=== PATIENT | male | born 1970 | race Caucasian/White ===

== ENCOUNTER 2019-09-16 23:32 | Emergency (ER) | payer SELFPAY ==
[~2019-09-16] VITALS: Ht 175.3 cm; Wt 72.7 kg
[2019-09-16 23:52] VITALS: BP 136/85; TEMP 98.6
[2019-09-17] MEDS ORDERED: ATARAX 25MG25 MG/TAB PO (00:17)
[2019-09-17 00:28] VITALS: PULSE 73
== END 2019-09-17 00:30 | disposition home or self-care (01) ==
LOC: COL.ER 23:32
DX: F41.9 Anxiety disorder, unspecified (principal)

== ENCOUNTER 2020-04-10 17:59 | Emergency (ER) | payer SELFPAY ==
[~2020-04-10] VITALS: Ht 175.3 cm; Wt 72.7 kg
[~2020-04-10 17:59] MED LIST: ATARAX 25MG25 MG/TAB PO
[2020-04-10 18:00] VITALS: TEMP 98.6
[2020-04-10 18:28] LABS: COLLECTION METHOD CLEAN CATCH
[2020-04-10 18:41] LABS: PH 6 (5-8); SQUAMOUS EPITHELIAL None Seen /hpf; URINE APPEARANCE Clear; URINE BACTERIA None Seen /hpf; URINE BILIRUBIN Negative (NEGATIVE); URINE BLOOD Negative (NEGATIVE); URINE COLOR Straw; URINE GLUCOSE Negative (NEGATIVE); URINE KETONE Negative (NEGATIVE); URINE LEUKOCYTE ESTERASE Negative (NEGATIVE); URINE NITRATE Negative (NEGATIVE); URINE PROTEIN(semi-quant) Negative (NEGATIVE); URINE RBC None Seen /hpf; URINE UROBILINOGEN Negative (NEGATIVE)
[2020-04-10 18:42] LABS: BASO % 0.5 % (0.0-2.0); EOS % 0.3 % (0-4.0); HEMATOCRIT 44.1 % (42.0-52.0); HEMOGLOBIN 15.2 g/dl (13.5-18.0); LYMPH % 22.7 % (20.0-51.0); MEAN CELL VOLUME 98 fl (80.0-100.0); MEAN CORPUSCULAR HEMOGLOBIN 34 pg (27.0-31.0); MEAN CORPUSCULAR HGB CONC 35 g/dl (33.0-37.0); MEAN PLATELET VOLUME 9.8 fl (7.4-10.4); MONO # 0.5 (0.1-0.6); PLATELET COUNT 143 K/mm3 (130-400); RED BLOOD COUNT 4.52 M/mm3 (4.20-5.60); REDCELL DISTRIBUTION WIDTH-CV 13.9 % (11.5-14.5)
[2020-04-10 18:48] LABS: INR 0.9 (0.8-3.0); PROTHROMBIN TIME 9.9 SECONDS (9.7-12.8)
[2020-04-10 18:50] LABS: PARTIAL THROMBOPLASTIN TIME 34.6 SECONDS (26.0-37.0)
[2020-04-10 19:01] LABS: ALANINE AMINOTRANSFERASE 23 U/L (4-49); ALBUMIN 3.9 gm/dL (3.5-5.0); ALCOHOL(ethanol),MEDICAL 290 mg/dL; ALKALINE PHOSPHATASE 51 U/L (50-136); ANION GAP 9 mmol/L (7-16); AST,SGOT 49 U/L (15-37); BILIRUBIN,TOTAL 0.5 mg/dL (0.0-1.0); BLOOD UREA NITROGEN 5 mg/dL (9-20); CALCIUM 8.3 mg/dL (8.4-10.2); CARBON DIOXIDE 24 mmol/L (22-30); CHLORIDE 106 mmol/L (98-107); GLUCOSE 89 mg/dL (74-106); MAGNESIUM 1.9 mg/dL (1.6-2.3); SODIUM 139 mmol/L (137-145); TOTAL PROTEIN 6.2 gm/dL (6.4-8.2)
[2020-04-10 19:24] LABS: TROPONIN-I < 0.012 ng/mL (0.000-0.035)
[2020-04-10 22:55] VITALS: BP 117/74; PULSE 91
== END 2020-04-10 22:55 | disposition home or self-care (01) ==
LOC: COL.ER 17:59
PROVIDERS: Emergency Medicine
DX: F41.9 Anxiety disorder, unspecified (principal); F10.229 Alcohol dependence with intoxication, unspecified; F17.200 Nicotine dependence, unspecified, uncomplicated; Z88.0 Allergy status to penicillin
CPT/HCPCS: J2060; J3411; J3475; J7030

== ENCOUNTER 2020-06-01 19:19 | Emergency (ER) | payer SELFPAY ==
[~2020-06-01] VITALS: Ht 175.3 cm; Wt 72.7 kg
[2020-06-01 19:52] LABS: BASO % 0.4 % (0.0-2.0); EOS # 0.1 (0.0-0.7); GRAN # 5.1 (1.4-6.5); GRAN % 67.2 % (42.2-75.2); HEMATOCRIT 42.5 % (42.0-52.0); HEMOGLOBIN 14.4 g/dl (13.5-18.0); LYMPH # 1.8 (1.2-3.4); LYMPH % 22.9 % (20.0-51.0); MEAN CELL VOLUME 99 fl (80.0-100.0); MEAN CORPUSCULAR HEMOGLOBIN 34 pg (27.0-31.0); MEAN CORPUSCULAR HGB CONC 34 g/dl (33.0-37.0); MEAN PLATELET VOLUME 10.1 fl (7.4-10.4); MONO # 0.6 (0.1-0.6); MONO % 8.1 % (1.7-9.3); PLATELET COUNT 139 K/mm3 (130-400); RED BLOOD COUNT 4.28 M/mm3 (4.20-5.60)
[2020-06-01 20:02] LABS: ALBUMIN 3.5 gm/dL (3.5-5.0); BILIRUBIN,TOTAL 0.4 mg/dL (0.0-1.0); CALCIUM 8.3 mg/dL (8.4-10.2); CREATININE, serum 0.81 (0.66-1.25); MAGNESIUM 2.1 mg/dL (1.6-2.3); POTASSIUM 4.1 mmol/L (3.4-5.0); TOTAL PROTEIN 5.8 gm/dL (6.4-8.2)
[2020-06-01 22:25] VITALS: BP 126/71; PULSE 89; TEMP 97.6
== END 2020-06-01 22:29 | disposition home or self-care (01) ==
LOC: COL.ER 19:19
PROVIDERS: Nurse Practitioner
DX: M25.572 Pain in left ankle and joints of left foot (principal); M25.571 Pain in right ankle and joints of right foot; F10.129 Alcohol abuse with intoxication, unspecified; Z88.0 Allergy status to penicillin
CPT/HCPCS: J3411; J3475; J7030

== ENCOUNTER 2020-10-24 17:13 | Observation (INO) | payer OTHER ==
[~2020-10-24] VITALS: Ht 175.3 cm; Wt 77.7 kg
[2020-10-24 18:12] LABS: BASO % 0.5 % (0.0-2.0); EOS # 0.1 (0.0-0.7); EOS % 0.9 % (0-4.0); GRAN % 62.5 % (42.2-75.2); HEMATOCRIT 43.4 % (42.0-52.0); HEMOGLOBIN 14.6 g/dl (13.5-18.0); LYMPH # 1.9 (1.2-3.4); MEAN CELL VOLUME 101 fl (80.0-100.0); MEAN CORPUSCULAR HEMOGLOBIN 34 pg (27.0-31.0); MEAN CORPUSCULAR HGB CONC 34 g/dl (33.0-37.0); MEAN PLATELET VOLUME 9.6 fl (7.4-10.4); MONO # 0.4 (0.1-0.6); MONO % 6.8 % (1.7-9.3); PLATELET COUNT 169 K/mm3 (130-400); RED BLOOD COUNT 4.32 M/mm3 (4.20-5.60); REDCELL DISTRIBUTION WIDTH-CV 13.5 % (11.5-14.5)
[2020-10-24 19:07] LABS: ALBUMIN 4.1 gm/dL (3.5-5.0); BILIRUBIN,TOTAL 0.1 mg/dL (0.0-1.0); CALCIUM 8.5 mg/dL (8.4-10.2); CREATININE, serum 0.77 (0.66-1.25); POTASSIUM 3.8 mmol/L (3.4-5.0); TOTAL PROTEIN 6.9 gm/dL (6.4-8.2)
[2020-10-25 02:03] LABS: ARTERIAL BLD GAS O2 SATURATION 92.9 % (92-100); ARTERIAL BLD GAS TCO2 CT 27.2; ARTERIAL BLOOD GAS BASE EXCESS 2.7 (-2-2); ARTERIAL BLOOD GAS HCO3 26.1 meq/L (22-26); ARTERIAL BLOOD GAS PCO2 36.2 mmHg (35-45); ARTERIAL BLOOD GAS pH 7.48 (7.35-7.45)
[2020-10-25 04:13] VITALS: BP 144/83; PULSE 83; TEMP 98.5
--- NOTE | 2020-10-25 05:09 | NUR ---
Patient arrived from ER to medical unit around 0320. Alert and oriented x 4, and able to make needs known. Denies having pain and discomfort at this time. Fluids running per orders. On oxygen at 6 L/min via oxymask. Patient taken down for CT chest to check for PE. RT notified when patient was back to get EKG. On telemetry. On detox protocol. Scored "0." LS CTA. Respirations even and unlabored. Voices no questions, needs, or concerns at this time. Resting in bed with call light within reach.
[2020-10-25 06:13] LABS: BASO % 0.2 % (0.0-2.0); GRAN # 4.4 (1.4-6.5); GRAN % 94.2 % (42.2-75.2); HEMATOCRIT 38.5 % (42.0-52.0); HEMOGLOBIN 12.7 g/dl (13.5-18.0); LYMPH # 0.2 (1.2-3.4); LYMPH % 4.3 % (20.0-51.0); MEAN CELL VOLUME 104 fl (80.0-100.0); MEAN CORPUSCULAR HEMOGLOBIN 34 pg (27.0-31.0); MEAN CORPUSCULAR HGB CONC 33 g/dl (33.0-37.0); MEAN PLATELET VOLUME 10.2 fl (7.4-10.4); MONO % 0.9 % (1.7-9.3); PLATELET COUNT 116 K/mm3 (130-400); RED BLOOD COUNT 3.71 M/mm3 (4.20-5.60); REDCELL DISTRIBUTION WIDTH-CV 13.5 % (11.5-14.5)
[2020-10-25 06:20] LABS: CALCIUM 7.8 mg/dL (8.4-10.2); CREATININE, serum 0.64 (0.66-1.25); POTASSIUM 3.5 mmol/L (3.4-5.0)
[2020-10-25 06:21] LABS: PROTHROMBIN TIME 11.1 SECONDS (9.7-12.8)
[2020-10-25 06:24] LABS: PARTIAL THROMBOPLASTIN TIME 34.1 SECONDS (26.0-37.0)
[2020-10-25 07:51] VITALS: BP 143/81; PULSE 77; TEMP 97.8
--- NOTE | 2020-10-25 08:30 | NUR ---
Patient resting in bed, easily awakened with verbal command. A&Ox4. VSS 5L oxymask, no reported SOB. Tremors in EMMANUEL extremity. Detox protocol in place. Patient encouraged to increase PO intake. No further needs expressed from the patient. Call light within reach. Bed alarm on
[2020-10-25 08:37] LABS: COLLECTION METHOD CLEAN CATCH
[2020-10-25 08:48] LABS: MUCOUS Present /lpf; PH 6 (5-8); SQUAMOUS EPITHELIAL None Seen /hpf; URINE APPEARANCE Clear; URINE BACTERIA None Seen /hpf; URINE BILIRUBIN Negative (NEGATIVE); URINE BLOOD Negative (NEGATIVE); URINE COLOR Yellow; URINE GLUCOSE 1+ (NEGATIVE); URINE KETONE Negative (NEGATIVE); URINE LEUKOCYTE ESTERASE Negative (NEGATIVE); URINE NITRATE Negative (NEGATIVE); URINE PROTEIN(semi-quant) Negative (NEGATIVE); URINE RBC 0-2 /hpf; URINE UROBILINOGEN Negative (NEGATIVE); URINE WBC 0-2 /hpf
[2020-10-25 08:56] LABS: TRICYCLIC ANTIDEPRESS URINE NEGATIVE
[2020-10-25 09:49] VITALS: BP 140/78; PULSE 75; TEMP 98.4
[2020-10-25] MEDS ORDERED: MEDROL 4MG DOSPA4 MG PO (10:51)
[2020-10-25] MEDS ORDERED: PROAIR HFA0.09 MG/AC IH (10:51)
[2020-10-25] MEDS ORDERED: DOXYCYCLINE 10100 MG PO (10:51)
--- NOTE | 2020-10-25 11:19 | NUR ---
Patient on room air and no complaints of SOB. Patient aware that if O2 sats are good that he can discharge home
--- NOTE | 2020-10-25 11:39 | NUR ---
SW met with patient to conduct intake evaluation. Patient is homeless and currently staying with a friend Osman Hoff in [place]. Patient is not interested in contacting homeless shelters, as he has a place to stay. Patient reported that his daughter Saskia Soto (P# [phone]) is his DPOA. Patient will contact daughter to hae her bring copy of paperwork in for hospital records. Patient does not have a PCP, but he uses [facility] for medications. Patient denies needing assistance with ADLs and uses no DME. Patient reports needing assistance with medications. SW obtained medication voucher for patient. Voucher was completed with Erin, signed by patient, and faxed to [facility]. Patient was given voucher, and a copy was placed on the chart. Patient plans to return to his friend's house upon discharge. Patient will discharge home today 10/25. Patient was provided with taxi voucher and use intructions along with his med voucher. RN was notified of completed voucher as well as taxi voucher. There are no other needs at this time.
--- NOTE | 2020-10-25 11:57 | NUR ---
Rail Filler offered prayer and support with patient.
--- NOTE | 2020-10-25 12:45 | NUR ---
Discharge paperwork reviewed with the patient. Patient verbalzied an understanding to follow doctors orders. IV removed, tip intact. Patient ambulated independently to the ER entrance with nursing staff. No further needs expressed from the patient
== END 2020-10-25 12:30 | disposition home or self-care (01) ==
LOC: COL.ER 17:13 → MEDICAL 10-25 00:37
PROVIDERS: Emergency Medicine; Nurse Practitioner Family; ADMIT Internal Medicine
DX: F10.129 Alcohol abuse with intoxication, unspecified (principal); Y90.8 Blood alcohol level of 240 mg/100 ml or more; J96.01 Acute respiratory failure with hypoxia; I10 Essential (primary) hypertension; K08.9 Disorder of teeth and supporting structures, unspecified; E87.1 Hypo-osmolality and hyponatremia; F17.210 Nicotine dependence, cigarettes, uncomplicated; J34.2 Deviated nasal septum; F41.9 Anxiety disorder, unspecified; Z20.822 Contact with and (suspected) exposure to COVID-19; Z72.89 Other problems related to lifestyle; Z91.14 Patient's other noncompliance with medication regimen; Z59.0 Homelessness; Z80.1 Family history of malignant neoplasm of trachea, bronchus and lung; S05.11XA Contusion of eyeball and orbital tissues, right eye, initial encounter; X58.XXXA Exposure to other specified factors, initial encounter
CPT/HCPCS: 99223-AI; G0378; J2543; J2920; J2930; J3411; J7030; Q9967

== ENCOUNTER 2021-01-08 19:25 | Emergency (ER) | payer SELFPAY ==
[~2021-01-08] VITALS: Ht 175.3 cm; Wt 72.7 kg
[~2021-01-08 19:25] MED LIST changes: +DOXYCYCLINE 10100 MG PO; +MEDROL 4MG DOSPA4 MG PO; +PROAIR HFA0.09 MG/AC IH
[2021-01-08 19:27] VITALS: TEMP 97.6
[2021-01-08 20:16] LABS: BASO % 0.7 % (0.0-2.0); EOS # 0.1 (0.0-0.7); EOS % 1.8 % (0-4.0); GRAN # 3.5 (1.4-6.5); GRAN % 62.3 % (42.2-75.2); HEMATOCRIT 39.3 % (42.0-52.0); HEMOGLOBIN 13.2 g/dl (13.5-18.0); LYMPH # 1.3 (1.2-3.4); LYMPH % 22.8 % (20.0-51.0); MEAN CELL VOLUME 101 fl (80.0-100.0); MEAN CORPUSCULAR HEMOGLOBIN 34 pg (27.0-31.0); MEAN CORPUSCULAR HGB CONC 34 g/dl (33.0-37.0); MEAN PLATELET VOLUME 9.6 fl (7.4-10.4); MONO # 0.7 (0.1-0.6); PLATELET COUNT 117 K/mm3 (130-400); RED BLOOD COUNT 3.91 M/mm3 (4.20-5.60)
[2021-01-08 20:26] LABS: BILIRUBIN,TOTAL 0.6 mg/dL (0.0-1.0); CALCIUM 8.3 mg/dL (8.4-10.2); CREATININE, serum 0.76 (0.66-1.25); POTASSIUM 3.5 mmol/L (3.4-5.0); TOTAL PROTEIN 6.9 gm/dL (6.4-8.2)
[2021-01-08] MEDS ORDERED: CIPRO 500MG TA500 MG PO (22:09)
[2021-01-08 22:51] VITALS: BP 137/83; PULSE 89
--- NOTE | 2021-01-09 14:56 | NUR ---
Monomer Purification Operator attempted to contact patient at [phone] and was unable to get through. SW attempted to contact patient's daughter, Konstantin at two different phone numbers, and [phone] and left a message at both numbers. SW received consult for patient as he is homeless and his daughter in concerned about patient's ability to afford medications and follow through on taking prescribed medications.
--- NOTE | 2021-01-09 15:15 | NUR ---
Group Fitness Instructor made report to APS (intake #[id number])
== END 2021-01-08 23:00 | disposition home or self-care (01) ==
LOC: COL.ER 19:25
PROVIDERS: Personal Emergency Response Attendant
DX: S51.851A Open bite of right forearm, initial encounter (principal); S41.151A Open bite of right upper arm, initial encounter; I10 Essential (primary) hypertension; F10.10 Alcohol abuse, uncomplicated; W54.0XXA Bitten by dog, initial encounter
CPT/HCPCS: J0696

== ENCOUNTER 2021-01-14 18:04 | Emergency (ER) | payer SELFPAY ==
[~2021-01-14] VITALS: Ht 175.3 cm; Wt 72.7 kg
[~2021-01-14 18:04] MED LIST changes: +CIPRO 500MG TA500 MG PO
[2021-01-14 18:06] VITALS: TEMP 98.3
[2021-01-14 18:46] LABS: BASO # 0.1 (0.0-0.2); BASO % 1.3 % (0.0-2.0); EOS # 0.1 (0.0-0.7); EOS % 0.9 % (0-4.0); GRAN # 3.5 (1.4-6.5); GRAN % 65.3 % (42.2-75.2); HEMATOCRIT 38.7 % (42.0-52.0); HEMOGLOBIN 13.4 g/dl (13.5-18.0); LYMPH # 1.1 (1.2-3.4); LYMPH % 20.3 % (20.0-51.0); MEAN CELL VOLUME 98 fl (80.0-100.0); MEAN CORPUSCULAR HEMOGLOBIN 34 pg (27.0-31.0); MEAN CORPUSCULAR HGB CONC 35 g/dl (33.0-37.0); MEAN PLATELET VOLUME 9.2 fl (7.4-10.4); MONO # 0.6 (0.1-0.6); MONO % 11.6 % (1.7-9.3); PLATELET COUNT 192 K/mm3 (130-400); RED BLOOD COUNT 3.96 M/mm3 (4.20-5.60); REDCELL DISTRIBUTION WIDTH-CV 12.4 % (11.5-14.5)
[2021-01-14 19:01] LABS: ALBUMIN 4.1 gm/dL (3.5-5.0); BILIRUBIN,TOTAL 0.4 mg/dL (0.0-1.0); CALCIUM 9.1 mg/dL (8.4-10.2); CREATININE, serum 0.59 (0.66-1.25); POTASSIUM 3.9 mmol/L (3.4-5.0); TOTAL PROTEIN 7.3 gm/dL (6.4-8.2)
[2021-01-14 20:11] VITALS: BP 141/78; PULSE 78
== END 2021-01-14 20:11 | disposition home or self-care (01) ==
LOC: COL.ER 18:04
PROVIDERS: Physician Assistant
DX: S61.551A Open bite of right wrist, initial encounter (principal); F10.129 Alcohol abuse with intoxication, unspecified; F17.210 Nicotine dependence, cigarettes, uncomplicated; W54.0XXA Bitten by dog, initial encounter

== ENCOUNTER 2021-01-21 16:37 | Emergency (ER) | payer SELFPAY ==
[~2021-01-21] VITALS: Ht 175.3 cm; Wt 72.7 kg
[2021-01-21 17:19] VITALS: TEMP 98.8
[2021-01-21] MEDS ORDERED: CLEOCIN HCL300 MG PO (19:15)
[2021-01-21 20:00] VITALS: BP 137/82; PULSE 72
== END 2021-01-21 20:00 | disposition home or self-care (01) ==
LOC: COL.ER 16:37 → EDSTATUS 17:02 → COL.ER 20:00
DX: L03.113 Cellulitis of right upper limb (principal); L03.313 Cellulitis of chest wall; F17.210 Nicotine dependence, cigarettes, uncomplicated; Z48.02 Encounter for removal of sutures; Z88.0 Allergy status to penicillin; W54.0XXD Bitten by dog, subsequent encounter

== ENCOUNTER 2021-08-22 09:29 | Emergency (ER) | payer SELFPAY ==
[~2021-08-22] VITALS: Ht 175.3 cm; Wt 72.7 kg
[2021-08-22 09:29] VITALS: TEMP 98.4
[~2021-08-22 09:29] MED LIST changes: +CLEOCIN HCL300 MG PO
[2021-08-22 09:57] LABS: BASO # 0.1 K/mm3 (0.0-0.2); BASO % 0.5 % (0.0-2.0); EOS # 0.1 K/mm3 (0.0-0.7); EOS % 0.5 % (0.0-4.0); GRAN # 7.9 K/mm3 (1.4-6.5); GRAN % 78.8 % (42.2-75.2); HEMATOCRIT 45.5 % (42.0-52.0); HEMOGLOBIN 15.6 g/dl (13.5-18.0); LYMPH # 1.5 K/mm3 (1.2-3.4); LYMPH % 15.1 % (20.0-51.0); MEAN CELL VOLUME 98 fl (80.0-100.0); MEAN CORPUSCULAR HEMOGLOBIN 34 pg (27-31); MEAN CORPUSCULAR HGB CONC 34 g/dl (33.0-37.0); MEAN PLATELET VOLUME 9.9 fl (7.4-10.4); MONO # 0.5 K/mm3 (0.1-0.6); MONO % 4.7 % (1.7-9.3); PLATELET COUNT 198 K/mm3 (130-400); RED BLOOD COUNT 4.65 M/mm3 (4.20-5.60); REDCELL DISTRIBUTION WIDTH-CV 12.8 % (11.5-14.5)
[2021-08-22 10:13] LABS: ALBUMIN 4.1 gm/dL (3.5-5.0); BILIRUBIN,TOTAL 0.7 mg/dL (0.2-1.2); CALCIUM 8.9 mg/dL (8.4-10.2); CREATININE, serum 1.08 mg/dL (0.72-1.25); POTASSIUM 4.2 mmol/L (3.5-4.5); TOTAL PROTEIN 7.6 gm/dL (6.2-8.1)
[2021-08-22 10:18] LABS: ERYTHROCYTE SEDIMENTATION RATE 4 mm/hr (0-15)
[2021-08-22 10:30] LABS: COLLECTION METHOD CLEAN CATCH
[2021-08-22 11:01] LABS: MUCOUS Present (NOT PRESENT); PH 5 (5-8); SQUAMOUS EPITHELIAL None Seen /hpf (0-10); URINE APPEARANCE Clear (CLEAR/HAZY); URINE BACTERIA None Seen /hpf (NONE SEEN); URINE BILIRUBIN Negative (NEGATIVE); URINE BLOOD Negative (NEGATIVE); URINE COLOR Yellow (YELLOW); URINE GLUCOSE Negative (NEGATIVE); URINE KETONE Negative (NEGATIVE); URINE LEUKOCYTE ESTERASE Negative (NEGATIVE); URINE NITRATE Negative (NEGATIVE); URINE PROTEIN(semi-quant) Negative (NEGATIVE); URINE RBC 0-2 /hpf (0-2); URINE UROBILINOGEN Negative (NEGATIVE)
[2021-08-22] MEDS ORDERED: PREDNISONE10 MG PO (12:47)
[2021-08-22 13:00] VITALS: BP 139/93; PULSE 83
== END 2021-08-22 13:00 | disposition home or self-care (01) ==
LOC: COL.ER 09:29
PROVIDERS: Family Medicine
DX: R22.0 Localized swelling, mass and lump, head (principal); T46.4X5A Adverse effect of angiotensin-converting-enzyme inhibitors, initial encounter; I10 Essential (primary) hypertension; F17.200 Nicotine dependence, unspecified, uncomplicated
CPT/HCPCS: J0171; J1100; J1200

== ENCOUNTER 2022-04-05 06:43 | Observation (INO) | payer BC ==
[~2022-04-05] VITALS: Ht 175.3 cm; Wt 71.8 kg
[~2022-04-05 06:43] MED LIST changes: +PREDNISONE10 MG PO
[2022-04-05 07:37] LABS: BASO % 0.5 % (0.0-2.0); EOS # 0.1 K/mm3 (0.0-0.7); EOS % 1.4 % (0.0-4.0); GRAN # 3.7 K/mm3 (1.4-6.5); GRAN % 64.4 % (42.2-75.2); HEMATOCRIT 39.2 % (42.0-52.0); HEMOGLOBIN 13.8 g/dl (13.5-18.0); LYMPH # 1.3 K/mm3 (1.2-3.4); LYMPH % 22.5 % (20.0-51.0); MEAN CELL VOLUME 96 fl (80.0-100.0); MEAN CORPUSCULAR HEMOGLOBIN 34 pg (27-31); MEAN CORPUSCULAR HGB CONC 35 g/dl (33.0-37.0); MEAN PLATELET VOLUME 9.8 fl (7.4-10.4); MONO # 0.6 K/mm3 (0.1-0.6); MONO % 10.7 % (1.7-9.3); PLATELET COUNT 112 K/mm3 (130-400); RED BLOOD COUNT 4.08 M/mm3 (4.20-5.60); REDCELL DISTRIBUTION WIDTH-CV 14.4 % (11.5-14.5)
[2022-04-05 07:57] LABS: ALBUMIN 3.8 gm/dL (3.5-5.0); BILIRUBIN,TOTAL 0.4 mg/dL (0.2-1.2); CALCIUM 8.4 mg/dL (8.4-10.2); CREATININE, serum 0.73 mg/dL (0.72-1.25); POTASSIUM 3.7 mmol/L (3.5-4.5); TOTAL PROTEIN 6.6 gm/dL (6.2-8.1)
[2022-04-05] MEDS ORDERED: PROZAC 20MG20 MG PO (13:15)
[2022-04-05] MEDS ORDERED: NORVASC2.5 MG PO (13:16)
--- NOTE | 2022-04-05 13:45 | NUR ---
arrived on unit per cart, assisted off cart and ambulated over to the bed, then assisted into the bathroom and voided large amount clear yellow urine, O2 on at 4L/NC,
[2022-04-05 13:55] VITALS: BP 144/97; PULSE 68; TEMP 98.1
--- NOTE | 2022-04-05 14:09 | NUR ---
o2 SAT 97% ON 4l, down to 3L and will montir
--- NOTE | 2022-04-05 14:30 | NUR ---
Dr Louise in to see patient, instructed on how to order something to eat, verbalizes understanding
--- NOTE | 2022-04-05 15:37 | NUR ---
appears to be sleeping, in bed with e yes closed, resp quiet and easy
[2022-04-05 16:04] VITALS: BP 150/88; PULSE 66; TEMP 97.7
--- NOTE | 2022-04-05 16:58 | NUR ---
awake and looking at phone, UA to lab, O2 down to 2L/NC and will monitor
--- NOTE | 2022-04-05 18:00 | NUR ---
resting in bed, supper ordered, UNRULY Morales notified of BP increasing
[2022-04-05 18:05] VITALS: BP 161/91; PULSE 65; TEMP 98.2
--- NOTE | 2022-04-05 18:07 | NUR ---
O2 sat is 93% on 2L, having a few mild tremors now
--- NOTE | 2022-04-05 18:39 | NUR ---
bedside shift report given to EFRAÍN Burnham
[2022-04-05 19:43] VITALS: BP 161/78; PULSE 72; TEMP 98.6
[2022-04-05 21:45] VITALS: BP 166/86; PULSE 66
[2022-04-05 22:04] LABS: COLLECTION METHOD CLEAN CATCH
[2022-04-05 22:13] LABS: MUCOUS Present (NOT PRESENT); SQUAMOUS EPITHELIAL None Seen /hpf (0-10); URINE BACTERIA None Seen /hpf (NONE SEEN); URINE RBC 0-2 /hpf (0-2); URINE WBC 0-2 /hpf (0-2)
[2022-04-05 22:14] LABS: PH 5.5 (5.0-8.5); URINE APPEARANCE Clear (CLEAR/HAZY); URINE BLOOD Negative (NEGATIVE); URINE COLOR Yellow (YELLOW); URINE GLUCOSE TRACE (NEGATIVE); URINE KETONE Negative (NEGATIVE); URINE NITRATE Negative (NEGATIVE); URINE PROTEIN(semi-quant) Negative (NEGATIVE); URINE UROBILINOGEN 0.2 E.U/dL (0.2-1.0)
[2022-04-05 22:19] LABS: TRICYCLIC ANTIDEPRESS URINE NEGATIVE
[2022-04-05 23:50] VITALS: BP 170/81; PULSE 66; TEMP 98.5
[2022-04-06 04:09] VITALS: BP 168/97; PULSE 61; TEMP 98.2
[2022-04-06 05:51] VITALS: BP 171/93; PULSE 58
[2022-04-06 07:05] LABS: BASO % 0.2 % (0.0-2.0); EOS % 0.2 % (0.0-4.0); GRAN # 6.1 K/mm3 (1.4-6.5); GRAN % 76.4 % (42.2-75.2); HEMATOCRIT 37.3 % (42.0-52.0); HEMOGLOBIN 13.1 g/dl (13.5-18.0); LYMPH # 1.1 K/mm3 (1.2-3.4); LYMPH % 13.1 % (20.0-51.0); MEAN CELL VOLUME 95 fl (80.0-100.0); MEAN CORPUSCULAR HEMOGLOBIN 34 pg (27-31); MEAN CORPUSCULAR HGB CONC 35 g/dl (33.0-37.0); MEAN PLATELET VOLUME 10.3 fl (7.4-10.4); MONO # 0.8 K/mm3 (0.1-0.6); MONO % 9.9 % (1.7-9.3); PLATELET COUNT 104 K/mm3 (130-400); RED BLOOD COUNT 3.91 M/mm3 (4.20-5.60); REDCELL DISTRIBUTION WIDTH-CV 14.1 % (11.5-14.5)
[2022-04-06 07:17] VITALS: BP 180/91; PULSE 65; TEMP 98
[2022-04-06 07:20] LABS: CREATININE, serum 0.65 mg/dL (0.72-1.25); POTASSIUM 3.7 mmol/L (3.5-4.5)
--- NOTE | 2022-04-06 08:00 | NUR ---
Report from PCT of elevated BP. Rechecked at this time manually and current BP 182/98. Hydralazine given per order. Will monitor.
[2022-04-06] MEDS ORDERED: FOLIC ACID 11 MG/TA1 PO (09:53)
[2022-04-06] MEDS ORDERED: PROZAC 20MG20 MG PO (09:53)
[2022-04-06] MEDS ORDERED: NICODERM C21 MG/PATC TD (09:53)
[2022-04-06] MEDS ORDERED: NORVASC2.5 MG PO (09:53)
[2022-04-06] MEDS ORDERED: THIAMINE 1100 MG/TAB PO (09:54)
[2022-04-06] MEDS ORDERED: MULTI VITAMINS1 TAB PO (09:54)
[2022-04-06] MEDS ORDERED: ATARAX 25MG25 MG/TAB PO ×2 (09:56→09:57)
[2022-04-06 10:04] VITALS: BP 162/85; PULSE 73
[2022-04-06 11:16] VITALS: BP 161/80; PULSE 71; TEMP 98.2
--- NOTE | 2022-04-06 12:32 | NUR ---
PATIENT RECIEVED DISCHARGE INFORMATION AND ACKNOWLEDGED UNDERSTANDING OF INFORMATION. DEPARTED WITH THE GUM DIPPER VIA WHEELCHAIR AT 1230
--- NOTE | 2022-04-06 12:37 | NUR ---
Ambreen: Yazdanism Situation: planograph operator stopped by room on rounds Background: Pt was content and resting Assessment: No needs right now Pt appreciated the visit Recommendation: planograph operator will follow up as needed
--- NOTE | 2022-04-06 12:38 | NUR ---
Graphic Artist met with patient to discuss discharge planning. Patient lives alone in [place] and sees Dr. Grigsby for primary care at [facility]. Patient obtains medications at [facility] with no difficulties. 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 Patient does not use any DME. Patient does not have Advance Directives, but reports he has three children: Konstantin (ph#[phone]), Bruna, and Raza. Patient is not . SW addressed patient's alcohol use and provided Mental Health and Drug/Alcohol Resource Guide. Patient is not interested in any inpatient or outpatient treatment at this time but advised he was recently at [facility] in [place] in August. Patient reported he goes to a couple times a week. Patient plans to return home at time of discharge and will utilize the [employer] bus as he can ride for free with his work ID. Discharge Plan: Home
== END 2022-04-06 12:30 | disposition home or self-care (01) ==
LOC: COL.ER 06:43 → MEDICAL 08:53
PROVIDERS: Personal Emergency Response Attendant; ADMIT Student in an Organized Health Care Education/Training Program
DX: R09.02 Hypoxemia (principal); F10.129 Alcohol abuse with intoxication, unspecified; S13.4XXA Sprain of ligaments of cervical spine, initial encounter; I10 Essential (primary) hypertension; F41.9 Anxiety disorder, unspecified; F17.210 Nicotine dependence, cigarettes, uncomplicated; Z79.899 Other long term (current) drug therapy; W19.XXXA Unspecified fall, initial encounter; Y90.8 Blood alcohol level of 240 mg/100 ml or more
CPT/HCPCS: G0378; J0360; J2060; J2405; J2930; J7030

== ENCOUNTER 2023-06-27 11:05 | Emergency (ER) | payer OTHER ==
[~2023-06-27] VITALS: Ht 177.8 cm; Wt 79.5 kg
[~2023-06-27 11:05] MED LIST changes: +ADVIL200 MG PO; +FOLIC ACID 11 MG/TA1 PO; +MULTI VITAMINS1 TAB PO; +NICODERM C21 MG/PATC TD; +NORVASC 10MG10 MG PO; +NORVASC2.5 MG PO; +OMNICEF 300MG300 MG PO; +PREDNISONE20 MG PO; +PROZAC 20MG20 MG PO; +THIAMINE 1100 MG/TAB PO; +ZESTRIL2.5 MG PO; +ZITHROMAX Z PA250 MG PO
[2023-06-27 11:17] LABS: BASO # 0.1 K/mm3 (0.0-0.2); BASO % 0.5 % (0.0-2.0); EOS # 0.2 K/mm3 (0.0-0.7); EOS % 1.5 % (0.0-4.0); GRAN # 7.2 K/mm3 (1.4-6.5); HEMATOCRIT 44.9 % (42.0-52.0); HEMOGLOBIN 15.4 g/dl (13.5-18.0); LYMPH # 2.1 K/mm3 (1.2-3.4); LYMPH % 20.5 % (20.0-51.0); MEAN CELL VOLUME 99 fl (80.0-100.0); MEAN CORPUSCULAR HEMOGLOBIN 34 pg (27-31); MEAN CORPUSCULAR HGB CONC 34 g/dl (33.0-37.0); MEAN PLATELET VOLUME 10.2 fl (7.4-10.4); MONO # 0.6 K/mm3 (0.1-0.6); PLATELET COUNT 179 K/mm3 (130-400); RED BLOOD COUNT 4.53 M/mm3 (4.20-5.60); REDCELL DISTRIBUTION WIDTH-CV 13.2 % (11.5-14.5)
[2023-06-27 12:38] LABS: ALBUMIN 3.4 gm/dL (3.5-5.0); BILIRUBIN,TOTAL 0.3 mg/dL (0.2-1.2); CREATININE, serum 0.7 mg/dL (0.72-1.25); POTASSIUM 3.5 mmol/L (3.5-4.5); TOTAL PROTEIN 6.2 gm/dL (6.2-8.1)
[2023-06-27 16:57] LABS: COLLECTION METHOD CLEAN CATCH
[2023-06-27 17:24] LABS: PH 5.5 (5.0-8.5); URINE APPEARANCE Clear (CLEAR/HAZY); URINE BLOOD Negative (NEGATIVE); URINE COLOR Yellow (YELLOW); URINE GLUCOSE Negative (NEGATIVE); URINE KETONE Negative (NEGATIVE); URINE NITRATE Negative (NEGATIVE); URINE PROTEIN(semi-quant) Negative (NEGATIVE); URINE UROBILINOGEN 0.2 E.U/dL (0.2-1.0)
[2023-06-27 17:25] LABS: MUCOUS Present (NOT PRESENT); URINE RBC None Seen /hpf (0-2)
[2023-06-27 18:00] VITALS: BP 125/74; PULSE 72
== END 2023-06-27 18:00 | disposition home or self-care (01) ==
LOC: COL.ER 11:05
PROVIDERS: Emergency Medicine
DX: F10.129 Alcohol abuse with intoxication, unspecified (principal); Y90.8 Blood alcohol level of 240 mg/100 ml or more
CPT/HCPCS: J2405; J7030

== ENCOUNTER 2023-07-26 12:48 | Emergency (ER) | payer OTHER ==
[~2023-07-26] VITALS: Ht 172.7 cm; Wt 75.0 kg
[2023-07-26 12:48] VITALS: TEMP 98.2
[2023-07-26] MEDS ORDERED: NS 1,000 ML IV ONE (13:00)
[2023-07-26 13:05] LABS: BASO % 0.6 % (0.0-2.0); EOS # 0.1 K/mm3 (0.0-0.7); EOS % 0.9 % (0.0-4.0); GRAN # 3.5 K/mm3 (1.4-6.5); GRAN % 54.8 % (42.2-75.2); HEMATOCRIT 42.4 % (42.0-52.0); HEMOGLOBIN 14.9 g/dl (13.5-18.0); LYMPH % 31.3 % (20.0-51.0); MEAN CELL VOLUME 97 fl (80.0-100.0); MEAN CORPUSCULAR HEMOGLOBIN 34 pg (27-31); MEAN CORPUSCULAR HGB CONC 35 g/dl (33.0-37.0); MEAN PLATELET VOLUME 9.5 fl (7.4-10.4); MONO # 0.8 K/mm3 (0.1-0.6); MONO % 12.1 % (1.7-9.3); PLATELET COUNT 141 K/mm3 (130-400); RED BLOOD COUNT 4.38 M/mm3 (4.20-5.60); REDCELL DISTRIBUTION WIDTH-CV 13.1 % (11.5-14.5)
[2023-07-26 13:28] LABS: ALANINE AMINOTRANSFERASE 34 U/L (0-55); ALBUMIN 3.9 gm/dL (3.5-5.0); ALKALINE PHOSPHATASE 51 U/L (40-150); ANION GAP 14 mmol/L (7-16); AST,SGOT 44 U/L (5-34); BILIRUBIN,TOTAL 0.4 mg/dL (0.2-1.2); BLOOD UREA NITROGEN 7 mg/dL (8-26); CARBON DIOXIDE 21 mmol/L (22-29); CHLORIDE 106 mmol/L (98-107); GLUCOSE 109 mg/dL (70-99); LIPASE 147 U/L (8-78); POTASSIUM 3.9 mmol/L (3.5-4.5); SODIUM 141 mmol/L (136-145); TOTAL PROTEIN 7.2 gm/dL (6.2-8.1)
[2023-07-26 13:31] LABS: ALCOHOL(ethanol),MEDICAL 384 mg/dL (0-10)
[2023-07-26 13:35] LABS: TROPONIN-I < 0.010 ng/mL (0.00-0.033)
[2023-07-26 13:45] VITALS: BP 135/78
[2023-07-26 16:02] VITALS: PULSE 82
== END 2023-07-26 16:00 | disposition home or self-care (01) ==
LOC: COL.ER 12:48
PROVIDERS: Nurse Practitioner
DX: F10.129 Alcohol abuse with intoxication, unspecified (principal); R07.89 Other chest pain; F17.200 Nicotine dependence, unspecified, uncomplicated; Y90.8 Blood alcohol level of 240 mg/100 ml or more
CPT/HCPCS: J7030

== ENCOUNTER → 2024-01-26 | Outpatient (CLI) | payer SELFPAY | LOC: COL.RAD 11:26 | DX: M17.11 Unilateral primary osteoarthritis, right knee (principal) ==

== ENCOUNTER 2024-02-16 18:16 | Emergency (ER) | payer SELFPAY ==
[~2024-02-16] VITALS: Ht 175.3 cm; Wt 72.7 kg
[2024-02-16 18:40] VITALS: TEMP 97.6
[2024-02-16] MEDS ORDERED: ZESTRIL 10MG10 MG PO (19:13)
[2024-02-16 19:36] VITALS: BP 121/79; PULSE 78
== END 2024-02-16 19:39 | disposition home or self-care (01) ==
LOC: COL.ER 18:16
DX: F10.20 Alcohol dependence, uncomplicated (principal); I10 Essential (primary) hypertension; F42.4 Excoriation (skin-picking) disorder; F17.200 Nicotine dependence, unspecified, uncomplicated

== ENCOUNTER → 2024-03-07 | Outpatient (CLI) | payer OTHER ==
[~2024-03-07] MED LIST changes: +ZESTRIL 10MG10 MG PO
== END ==
LOC: COL.RAD 11:04
DX: R05.9 Cough, unspecified (principal)

== ENCOUNTER → 2024-03-13 | Outpatient (CLI) | payer OTHER ==
[~2024-03-13] MED LIST changes: +Iohexol 300 - 100 ML VIAL IV ONE; +NS 100 ML IV SCH
== END ==
LOC: COL.RAD 10:28
DX: R91.1 Solitary pulmonary nodule (principal); I31.39 Other pericardial effusion (noninflammatory)
CPT/HCPCS: Q9967

== ENCOUNTER 2024-03-18 15:53 | Emergency (ER) | payer OTHER ==
[~2024-03-18] VITALS: Ht 175.3 cm; Wt 72.7 kg
[~2024-03-18 15:53] MED LIST changes: -Iohexol 300 - 100 ML VIAL IV ONE; -NS 100 ML IV SCH
[2024-03-18 15:55] VITALS: TEMP 98.7
[2024-03-18] MEDS ORDERED: Folic Acid 1 MG,Thiamine 200 MG in NS 1,000 ML IV ONE (16:15)
[2024-03-18 16:21] LABS: BASO # 0.1 K/mm3 (0.0-0.2); BASO % 0.7 % (0.0-2.0); EOS # 0.1 K/mm3 (0.0-0.7); EOS % 0.8 % (0.0-4.0); GRAN # 4.5 K/mm3 (1.4-6.5); GRAN % 61.2 % (42.2-75.2); HEMATOCRIT 37.3 % (42.0-52.0); HEMOGLOBIN 12.6 g/dl (13.5-18.0); LYMPH # 2.1 K/mm3 (1.2-3.4); LYMPH % 28.4 % (20.0-51.0); MEAN CELL VOLUME 101 fl (80.0-100.0); MEAN CORPUSCULAR HEMOGLOBIN 34 pg (27-31); MEAN CORPUSCULAR HGB CONC 34 g/dl (33.0-37.0); MEAN PLATELET VOLUME 9.6 fl (7.4-10.4); MONO # 0.6 K/mm3 (0.1-0.6); MONO % 8.5 % (1.7-9.3); PLATELET COUNT 161 K/mm3 (130-400); REDCELL DISTRIBUTION WIDTH-CV 13.4 % (11.5-14.5)
[2024-03-18 16:24] LABS: PROTHROMBIN TIME 11.3 SECONDS (9.7-12.8)
[2024-03-18 16:37] LABS: ALBUMIN 3.6 g/dL (3.5-5.0); BILIRUBIN,TOTAL 0.3 mg/dL (0.2-1.2); CALCIUM 9.4 mg/dL (8.4-10.2); CREATININE, serum 0.75 mg/dL (0.72-1.25); POTASSIUM 3.6 mEq/L (3.5-4.5)
[2024-03-18 18:59] LABS: COLLECTION METHOD CLEAN CATCH
[2024-03-18 19:10] LABS: URINE APPEARANCE CLEAR (CLEAR/HAZY); URINE BLOOD NEGATIVE (NEGATIVE); URINE COLOR YELLOW (YELLOW); URINE GLUCOSE NEGATIVE (NEGATIVE); URINE KETONE NEGATIVE (NEGATIVE); URINE NITRATE NEGATIVE (NEGATIVE); URINE PROTEIN(semi-quant) NEGATIVE (NEGATIVE); URINE UROBILINOGEN 0.2 E.U/dL (0.2-1.0)
[2024-03-18 19:33] LABS: TRICYCLIC ANTIDEPRESS URINE NEGATIVE (NEGATIVE)
[2024-03-18 21:41] VITALS: BP 137/87; PULSE 78
== END 2024-03-18 21:50 | disposition short-term general hospital (02) ==
LOC: COL.ER 15:53
PROVIDERS: Emergency Medicine
DX: F10.129 Alcohol abuse with intoxication, unspecified (principal); C80.1 Malignant (primary) neoplasm, unspecified; Y90.8 Blood alcohol level of 240 mg/100 ml or more
CPT/HCPCS: J3411; J7030

== ENCOUNTER 2024-05-08 15:58 | Inpatient (IN) | payer SELFPAY ==
[~2024-05-08] VITALS: Ht 175.3 cm; Wt 76.0 kg
[2024-05-08] MEDS ORDERED: Acetaminophen 500 MG TAB PO ONE (16:45)
[2024-05-08] MEDS ORDERED: NS 1,000 ML IV ONE (16:45)
[2024-05-08] MEDS ORDERED: NS 1,000 ML IV SCH (17:00)
[2024-05-08 17:07] LABS: COLLECTION METHOD CLEAN CATCH
[2024-05-08 17:15] LABS: URINE APPEARANCE CLEAR (CLEAR/HAZY); URINE BLOOD NEGATIVE (NEGATIVE); URINE COLOR YELLOW (YELLOW); URINE GLUCOSE NEGATIVE (NEGATIVE); URINE KETONE NEGATIVE (NEGATIVE); URINE NITRATE NEGATIVE (NEGATIVE); URINE PROTEIN(semi-quant) NEGATIVE (NEGATIVE); URINE UROBILINOGEN 0.2 E.U/dL (0.2-1.0)
[2024-05-08 17:28] LABS: HEMATOCRIT 27.3 % (42.0-52.0); HEMOGLOBIN 9.4 g/dl (13.5-18.0); MEAN CELL VOLUME 102 fl (80.0-100.0); MEAN CORPUSCULAR HEMOGLOBIN 35 pg (27-31); MEAN CORPUSCULAR HGB CONC 34 g/dl (33.0-37.0); PLATELET COUNT 51 K/mm3 (130-400); RED BLOOD COUNT 2.69 M/mm3 (4.20-5.60); REDCELL DISTRIBUTION WIDTH-CV 17.3 % (11.5-14.5)
[2024-05-08 17:36] LABS: ALBUMIN 3.1 g/dL (3.5-5.0); BILIRUBIN,TOTAL 0.3 mg/dL (0.2-1.2); CALCIUM 9.3 mg/dL (8.4-10.2); CREATININE, serum 0.71 mg/dL (0.72-1.25); POTASSIUM 3.7 mEq/L (3.5-4.5); TOTAL PROTEIN 6.2 g/dl (6.2-8.1)
[2024-05-08] MEDS ORDERED: Iohexol 300 - 100 ML VIAL IV ONE (18:11)
[2024-05-08] MEDS ORDERED: Morphine 4 MG/ML VIAL IV ONE (18:45)
[2024-05-08 18:55] LABS: BAND 7 % (0-10); LYMPHOCYTE 27 % (20.0-51.0); METAMYELOCYTE 1 % (0-0); NEUTROPHILS 55 % (42.0-75.2)
[2024-05-08 18:56] LABS: NUCLEATED RED BLOOD CELL 1 (0-6); PLATELET ESTIMATE DECREASED (NORMAL)
[2024-05-08 18:57] LABS: ANISOCYTOSIS 1+
[2024-05-08] MEDS ORDERED: ROXICODONE 55 MG/TAB PO (19:57)
[2024-05-08] MEDS ORDERED: KEPPRA1000 MG PO (19:58)
[2024-05-08] MEDS ORDERED: COMPAZINE 110 MG/TAB PO (19:59)
[2024-05-08] MEDS ORDERED: ZOFRAN ODT8 MG PO (19:59)
[2024-05-08] MEDS ORDERED: Ondansetron 4 MG/2 ML VIAL IV PRN (20:15)
[2024-05-08] MEDS ORDERED: hydrOXYzine HCl 25 MG TAB PO PRN (20:15)
[2024-05-08 22:09] VITALS: BP 142/92; PULSE 103; TEMP 99
--- NOTE | 2024-05-08 22:15 | NUR ---
PATIENT ADMITTED TO ROOM 327 BROUGHT UP IN WHEEL CHAIR FROM ED. VS ARE:BP 144/83, 98 PULSE, 98.6 TEMP, 97% O2 ON 4L NC. PATIENT A&O X4, NEUTRIOPENIC PRECAUTIONS IN PLCE. LR RUNNING IN PORT-A-CATH WITH SINGLE LUMEN. DENIES PAIN AT THIS TIME OR NEEDS. MED REC COMPLETE, HOWEVER, PATIENT DISMISSIVE AND APPEARS TO JUST WANT TO SLEEP MED REC MAY NEED FURTHER REVIEW. ORIENTED TO ROOM. CALL LIGHT WITHIN REACH.
[2024-05-08 22:22] VITALS: BP 144/83; PULSE 102; TEMP 98.6
[2024-05-08 22:30] VITALS: BP_SYST 165
--- NOTE | 2024-05-08 23:32 | NUR ---
BLADDER SCANNED PATIENT 26ML
[2024-05-09] VITALS (14 sets, daily range): BP systolic 118–168; BP diastolic 57–93; PULSE 54–108; TEMP 96.2–100.1
--- NOTE | 2024-05-09 00:54 | NUR ---
CALL PLACED TO [facility]OSPITALISTANA[facility]. PATIENT C/O INABILITY TO URINATE. BLADDER SCAN PERFORMED-1588 ML OF URINE PRESENT. TORB TO PERFORM STRAIGHT CATH GIVEN.
--- NOTE | 2024-05-09 01:16 | NUR ---
STRAIGHT CATH PERFORMED 1770 MLS PALE YELLOW, CLEAR URINE EXTRACTED.
--- NOTE | 2024-05-09 02:44 | NUR ---
CALL PLACED TO HOSPITALISTANAND. PATIENT LOW GRADE FEVER 100.1. TORB FOR 650 MG PO TYLENOL Q6H PRN GIVEN.
[2024-05-09] MEDS ORDERED: Acetaminophen 325 MG TAB PO PRN (02:45)
[2024-05-09] MEDS ORDERED: Vancomycin 2 GM,Special Dose/Pharmacy Prepared 2 GM in NS 500 ML IV SCH (05:00)
[2024-05-09] MEDS ORDERED: Albuterol/Ipratropium 3 MG-0.5 MG/3 ML Neb Soln IH PRN (05:00)
[2024-05-09] MEDS ORDERED: Vancomycin 1.25 GM,Special Dose/Pharmacy Prepared 1.25 GM in NS 250 ML IV SCH (06:00)
--- NOTE | 2024-05-09 06:03 | NUR ---
53 yo male with a history of lung cancer is now admitted for possible sepsis in the setting of febrile neutropenia. ht 175.26 cm wt 76 kg SCr 0.71 with estimated CrCl >60 ml/min half life 7.5 hours Plan: Patient received an initial loading dose of vancomycin 1500 mg x1 in the ED (19.7 mg/kg); will follow with a maintenance regimen of vancomycin 1250 mg q8h to target a goal trough of 15-20 mcg/ml. Will follow patient's renal function, micro data, and vancomycin levels as indicated to assess for any necessary changes to the regimen. Thank you for this dosing consult.
[2024-05-09] MEDS ORDERED: Pantoprazole 40 MG in NS 10 ML IV SCH (07:00)
[2024-05-09 07:06] LABS: MEAN CELL VOLUME 103 fl (80.0-100.0); MEAN CORPUSCULAR HGB CONC 34 g/dl (33.0-37.0); MEAN PLATELET VOLUME 10.6 fl (7.4-10.4); PLATELET COUNT 51 K/mm3 (130-400); RED BLOOD COUNT 2.48 M/mm3 (4.20-5.60); REDCELL DISTRIBUTION WIDTH-CV 17.6 % (11.5-14.5)
[2024-05-09 07:07] LABS: HEMATOCRIT 25.6 % (42.0-52.0); HEMOGLOBIN 8.7 g/dl (13.5-18.0); MEAN CORPUSCULAR HEMOGLOBIN 35 pg (27-31)
[2024-05-09 07:23] LABS: CALCIUM 8.7 mg/dL (8.4-10.2); CREATININE, serum 0.63 mg/dL (0.72-1.25); POTASSIUM 3.5 mEq/L (3.5-4.5)
[2024-05-09 07:57] LABS: BAND 23 % (0-10); LYMPHOCYTE 28 % (20.0-51.0); NEUTROPHILS 41 % (42.0-75.2); NUCLEATED RED BLOOD CELL 3 (0-6)
[2024-05-09 07:58] LABS: ANISOCYTOSIS 1+
[2024-05-09 07:59] LABS: METAMYELOCYTE 1 % (0-0); MYELOCYTE 1 % (0-0)
--- NOTE | 2024-05-09 08:00 | NUR ---
PATIENT SITTING UP IN BED. AAOX4. HEAD TO TOE ASSESSMENT COMPLETED. MORNING MEDS GIVEN. PT DENIED PAIN AT THIS TIME. COURSE CRACKLES NOTED UPON AUSCULATION, BUL. ENCOURAGED PATIENT TO EAT SLOW SINCE HE HAS BEEN HAVING DYSPHAGIA. INFORMED PT TO NOTIFY THIS NURSE IF ANY TROUBLE WITH SWALLOWING BREAKFAST OR INCREASED COUGHING. BED IN LOWEST POSITON. NO SKID SOCKS ON. CALL LIGHT IN REACH.
[2024-05-09] MEDS ORDERED: amLODIPine 10 MG TAB PO SCH (09:00)
[2024-05-09] MEDS ORDERED: FLUoxetine 20 MG CAP PO SCH (09:00)
[2024-05-09] MEDS ORDERED: Cefepime 1 G in Water For Injection,Sterile 10 ML IV SCH (10:00)
[2024-05-09] MEDS ORDERED: Fluconazole 100 MG TAB PO SCH (10:00)
[2024-05-09] MEDS ORDERED: NOVAPLUS CAR10 MG/ML (10:36)
[2024-05-09] MEDS ORDERED: ETOPOSIDE (10:37)
[2024-05-09] MEDS ORDERED: TECENTRIQ1200 MG/20 (10:37)
[2024-05-09] MEDS ORDERED: DEXAMETHASON10 MG/ML (10:38)
[2024-05-09] MEDS ORDERED: ALOXII (10:38)
--- NOTE | 2024-05-09 10:48 | NUR ---
JUAN CALLED FROM DR.BRANDON MADRIGAL OFFICE REQUESTING UPDATE FOR PT. PROVIDED UPDATE ABOUT ADMISSION AND CURRENT STATUS.
[2024-05-09] MEDS ORDERED: TYLENOL 500MG500 MG PO (10:49)
--- NOTE | 2024-05-09 12:20 | NUR ---
NOTIFIED BY LAB OF POSITIVE BC WITH GRAM NEGATIVE RODS, SEE PRELIM REPORT. CALLED REPORT RESULTS & TEMP OF 100.0 TO , NO NEW ORDERS AT THIS TIME.
--- NOTE | 2024-05-09 13:31 | NUR ---
Finished Cigar Maker met with patient to discuss discharge planning. Patient lives with his brother, Ramón in [place] [facility] and is working to get established with [facility] for primary care. Patient stated he should be approved for Medicare soon. Patient has his sister, Kandi (ph#[phone]) and daughter, Konstantin (ph#[phone]) listed as contacts. Patient uses [facility] in [place] and does not use any DME besides his inhaler. Patient reported he is independent with ADLS, however does have to rely on others for transportation. Patient advised [facility] At time of discharge, patient plans to return home with his brother. KAMLESH contacted KAMLESH Jacome at [facility] who stated she will fax over a copy of DPOA-HC. KAMLESH spoke with RNTorri about ordering PT/OT for patient. Discharge Plan: Home with family
--- NOTE | 2024-05-09 16:23 | NUR ---
hospital social worker attended multidisciplinary team meeting to discuss discharge plan. When patient is medically ready for discharge the current plan is for him to return home with family support. Everyone is in agreement with this plan. Discharge plan: Home
[2024-05-09] MEDS ORDERED: levETIRAcetam 500 MG TAB PO SCH (18:00)
--- NOTE | 2024-05-09 19:22 | NUR ---
Bedside report received from RN Debbie. Pt awake in bed with no complaints. Call light within reach.
--- NOTE | 2024-05-09 21:30 | NUR ---
Pt resting in bed awake with no complaints. Shift assessment completed. VSS. Port-a-cath accessed to Rt upper chest. PAC flushes without complicaitons but does not draw back blood at this time. Pt denies pain rating 0/10. Pt ambulates independently with no complications. Bladder scan completed and noted 300mL. Pt states he has been voiding without complications during day. Pt has no request at this time. Call light within reach.
--- NOTE | 2024-05-09 23:28 | NUR ---
Pt reported urination into bedside urinal. 800mL of clear yellow urine emptied from bedside urinal by this nurse. Pt refuses bladder scan at this time. Call light within reach.
[2024-05-10] VITALS (14 sets, daily range): BP systolic 114–162; BP diastolic 70–90; PULSE 69–95; TEMP 98.3–99.3
--- NOTE | 2024-05-10 00:39 | NUR ---
PCT Madan reported elevated BP of 160s/70s. Pt assessed and BP rechecked by this nurse and noted to be 129/76.
--- NOTE | 2024-05-10 03:51 | NUR ---
Emptied urinal at bedside totaling of 400mL of clear yellow urine. Pt denied bladder scan at this time.
[2024-05-10 04:58] LABS: MEAN CELL VOLUME 100 fl (80.0-100.0); MEAN CORPUSCULAR HGB CONC 35 g/dl (33.0-37.0); MEAN PLATELET VOLUME 9.4 fl (7.4-10.4); PLATELET COUNT 51 K/mm3 (130-400); RED BLOOD COUNT 2.46 M/mm3 (4.20-5.60); REDCELL DISTRIBUTION WIDTH-CV 16.8 % (11.5-14.5)
[2024-05-10 05:11] LABS: HEMATOCRIT 24.5 % (42.0-52.0); HEMOGLOBIN 8.5 g/dl (13.5-18.0); MEAN CORPUSCULAR HEMOGLOBIN 35 pg (27-31)
[2024-05-10 05:14] LABS: CALCIUM 8.6 mg/dL (8.4-10.2); CREATININE, serum 0.64 mg/dL (0.72-1.25); POTASSIUM 3.4 mEq/L (3.5-4.5)
--- NOTE | 2024-05-10 05:45 | NUR ---
Pt resting in bed with eyes closed and no complaints. Port-a-cath successfully draw backs blood and flushes without complication at this time.
[2024-05-10 06:01] LABS: ANISOCYTOSIS 1+; BAND 7 % (0-10); LYMPHOCYTE 11 % (20.0-51.0); NEUTROPHILS 73 % (42.0-75.2); PLATELET ESTIMATE DECREASED (NORMAL)
--- NOTE | 2024-05-10 08:55 | NUR ---
PATIENT ALERT AND ORIENTED X4. DENIES PAIN AT THIS TIME. PATIENT ON 1L 02/, INDEPENDENT IN ROOM, ON NEUTROPENIC PRECAUTIONS.VOIDING HAZY YELLOW URINE. AFEBRILE AT THIS TIME. SHIFT ASSESSMENT COMPLETED. MORNING MEDICATIONS GIVEN. DENIES FURTHER NEEDS AT THIS TIME.CALL LIGHT WITHIN REACH. BED AT LOWEST POSITION.
[2024-05-10] MEDS ORDERED: Potassium Bicarbonate/Citrate 20 MEQ Effervescent TAB PO SCH (11:30)
--- NOTE | 2024-05-10 12:48 | NUR ---
D: Decorating And Assembly Supervisor stopped by room on rounds. A: Pt was resting and content. Pt has no needs right now. P: Decorating And Assembly Supervisor informed pt that if he needed anything from the spray drier operator helper area to let his nurse know. Decorating And Assembly Supervisor will follow up as needed.
--- NOTE | 2024-05-10 20:00 | NUR ---
PATIENT IS A&O. NOTED LOW GRADE TEMP OF 99.3, GAVE PRN TYLENOL. ALL OTHER VSS. NO COMPLAINTS. IV ABX NOW INFUSING VIA PUMP INTO PORTACATH. INDEPENDENT IN ROOM. PT/OT CONSULTED. TOLERATING AHA DIET. HEAD TO TOE ASSESSMENT COMPLETE. NO OTHER NEEDS AT THIS TIME. PATIENT RESTING UP IN BED, WATCHING TV. CALL LIGHT IN REACH.
[2024-05-11] VITALS (8 sets, daily range): BP systolic 122–136; BP diastolic 81–90; PULSE 83–86; TEMP 98.5–98.9
[2024-05-11 07:20] LABS: CALCIUM 8.4 mg/dL (8.4-10.2); CREATININE, serum 0.69 mg/dL (0.72-1.25); POTASSIUM 3.8 mEq/L (3.5-4.5)
[2024-05-11 07:31] LABS: MEAN CELL VOLUME 101 fl (80.0-100.0); MEAN CORPUSCULAR HGB CONC 34 g/dl (33.0-37.0); MEAN PLATELET VOLUME 11.5 fl (7.4-10.4); PLATELET COUNT 50 K/mm3 (130-400); RED BLOOD COUNT 2.52 M/mm3 (4.20-5.60); REDCELL DISTRIBUTION WIDTH-CV 16.9 % (11.5-14.5)
[2024-05-11 07:46] LABS: HEMATOCRIT 25.5 % (42.0-52.0); HEMOGLOBIN 8.6 g/dl (13.5-18.0); MEAN CORPUSCULAR HEMOGLOBIN 34 pg (27-31)
[2024-05-11 08:23] LABS: ANISOCYTOSIS 1+; BAND 9 % (0-10); LYMPHOCYTE 11 % (20.0-51.0); METAMYELOCYTE 3 % (0-0); NEUTROPHILS 73 % (42.0-75.2); PLATELET ESTIMATE DECREASED (NORMAL)
[2024-05-11] MEDS ORDERED: DIFLUCAN200 MG PO (12:46)
[2024-05-11] MEDS ORDERED: LEVAQUIN 7750 MG/151 IV (12:48)
--- NOTE | 2024-05-11 14:11 | NUR ---
metal storage worker was notified patient is medically ready for discharge but will need IV antibiotics the current recommendation was Cefapine 3x a day. KAMLESH updated Dr. Luis patient is currently self pay and has partial harsha through the hospital and asked if there was an antibiotic that could be once a day as patient lives in [place]. Dr Luis was able to determine through ID patient could discharge once a day with Levaquin once a day for two weeks. Kamlesh spoke with [facility] billing department and unfortunately at this time they would likely not be able to accept patient as self pay due to a current debt of $3,000. KAMLESH contacted our express unit whom expressed they are able to start patient's IV antibiotics tomorrow at 8:[address] Luis, manager community development, patient and patient's nurse. KAMLESH faxed clinical information and prescription to Express Unit. KAMLESH was notified patient has been working with a hospital assistance program through [facility] and patient has a few forms to sign and he would be able to get Medicaid. KAMLESH received one form of this packet. KAMLESH contacted Nadine at the hospital assistance program whom is going to refax and secure email the forms to the social work job titles. KAMLESH spoke with patient's family whom is calling Nadine as the forms have not come through yet. DIscharge plan: Home with IV antibiotic once a day for two weeks
--- NOTE | 2024-05-11 15:05 | NUR ---
Pt. ready for discharge. Reviewed and gave dishcharge packet to the pt. and his family. Pt. and family voice understanding. Pt. discharging with PORT accessed. Plan for Outpt antibiotics. Pt. given education on caring for Accessed PORT. Pt. dressed and escorted out.
== END 2024-05-11 15:10 | disposition home or self-care (01) | DRG 157 ==
LOC: COL.ER 15:58 → SURG 20:02
PROVIDERS: Internal Medicine; Physician Assistant; ADMIT Internal Medicine
DX: B37.0 Candidal stomatitis (principal); D61.810 Antineoplastic chemotherapy induced pancytopenia; C34.90 Malignant neoplasm of unspecified part of unspecified bronchus or lung; C79.31 Secondary malignant neoplasm of brain; D84.9 Immunodeficiency, unspecified; R78.81 Bacteremia; D61.818 Other pancytopenia; D70.9 Neutropenia, unspecified; F10.20 Alcohol dependence, uncomplicated; Z20.822 Contact with and (suspected) exposure to COVID-19; R50.81 Fever presenting with conditions classified elsewhere; I10 Essential (primary) hypertension; F32.A Depression, unspecified; B96.5 Pseudomonas (aeruginosa) (mallei) (pseudomallei) as the cause of diseases classified elsewhere; Z79.631 Long term (current) use of antimetabolite agent; Z79.60 Long term (current) use of unspecified immunomodulators and immunosuppressants; Z88.0 Allergy status to penicillin; Z87.891 Personal history of nicotine dependence; D63.0 Anemia in neoplastic disease
CPT/HCPCS: G0378; J0692; J1956; J2270; J2470; J3370; J7030; J7050; Q3014; Q9967

== ENCOUNTER 2024-05-14 10:11 | Emergency (ER) | payer OTHER ==
[~2024-05-14] VITALS: Ht 175.3 cm; Wt 72.7 kg
[~2024-05-14 10:11] MED LIST changes: +ALOXII; +COMPAZINE 110 MG/TAB PO; +DEXAMETHASON10 MG/ML; +DIFLUCAN200 MG PO; +ETOPOSIDE; +KEPPRA1000 MG PO; +LEVAQUIN 7750 MG/151 IV; +NOVAPLUS CAR10 MG/ML; +ROXICODONE 55 MG/TAB PO; +TECENTRIQ1200 MG/20; +TYLENOL 500MG500 MG PO; +ZOFRAN ODT8 MG PO
[2024-05-14 10:32] VITALS: TEMP 98.1
[2024-05-14] MEDS ORDERED: Morphine 4 MG/ML VIAL IV ONE (12:30)
[2024-05-14 12:58] LABS: MEAN CELL VOLUME 104 fl (80.0-100.0); MEAN CORPUSCULAR HGB CONC 34 g/dl (33.0-37.0); MEAN PLATELET VOLUME 10.5 fl (7.4-10.4); PLATELET COUNT 108 K/mm3 (130-400); RED BLOOD COUNT 2.35 M/mm3 (4.20-5.60); REDCELL DISTRIBUTION WIDTH-CV 17.3 % (11.5-14.5)
[2024-05-14 13:06] LABS: HEMATOCRIT 24.5 % (42.0-52.0); HEMOGLOBIN 8.2 g/dl (13.5-18.0); MEAN CORPUSCULAR HEMOGLOBIN 35 pg (27-31)
[2024-05-14 13:15] LABS: BILIRUBIN,TOTAL 0.3 mg/dL (0.2-1.2); CREATININE, serum 0.65 mg/dL (0.72-1.25); POTASSIUM 3.8 mEq/L (3.5-4.5); TOTAL PROTEIN 6.8 g/dl (6.2-8.1)
[2024-05-14 13:40] LABS: BAND 1 % (0-10); LYMPHOCYTE 17 % (20.0-51.0); METAMYELOCYTE 1 % (0-0); NEUTROPHILS 69 % (42.0-75.2)
[2024-05-14 13:41] LABS: ANISOCYTOSIS 1+; PLATELET ESTIMATE DECREASED (NORMAL)
[2024-05-14] MEDS ORDERED: FENTANYL 50MCG TD (14:54)
[2024-05-14 15:08] VITALS: BP 121/77; PULSE 95
[2024-05-14] MEDS ORDERED: FENTANYL 25 MCG TD (16:34)
[2024-05-18] MEDS ORDERED: LASIX 20MG TABL20 MG PO (08:20)
== END 2024-05-14 15:08 | disposition home or self-care (01) ==
LOC: COL.ER 10:11
PROVIDERS: Physician Assistant
DX: G89.3 Neoplasm related pain (acute) (chronic) (principal); C34.92 Malignant neoplasm of unspecified part of left bronchus or lung; C79.31 Secondary malignant neoplasm of brain
CPT/HCPCS: J2270